=== PATIENT | male | born 1965 | race Hispanic/Latino ===

== ENCOUNTER 2016-11-18 15:03 | Emergency (ER) | payer MEDICARE ==
[2016-11-18 16:39] LABS: Bilirubin,Urine Negative (Negative); Blood,Urine Negative (Negative); Ketones,Urine Negative (Negative); Protein,Urine <15 mg/dL mg/dL (Negative)
[2016-11-18 16:40] LABS: Leukocyte Esterase,Urine Negative (Negative); Nitrite,Urine Negative (Negative); Urobilinogen,Urine < 2.0 mg/dL (<2.0)
[2016-11-18] MEDS ORDERED: NACL 0.9% 1000 ML 1,000 ML IV ONE ×2 (16:45→19:21)
[2016-11-18] MEDS ORDERED: MORPHINE IV ONE (16:45)
[2016-11-18] MEDS ORDERED: ZOFRAN IV ONE ×2 (16:45→23:17)
[2016-11-18] MEDS ORDERED: MORPHINE ONE (16:48)
[2016-11-18 16:49] LABS: Basophils % (Auto) 0.7 % (0.0-1.8); Eosinophils % (Auto) 1.7 % (0.0-4.3); Hematocrit 36.5 % (35.5-45.6); Hemoglobin 12.2 gm/dl (11.8-15.2); Mean Corpuscular HGB Conc 33 % (32-34); Mean Corpuscular Hemoglobin 29 pg (28-32); Mean Corpuscular Volume 87 fl (84-94); Platelet Count 179 K/mm3 (140-440); Red Blood Count 4.22 M/mm3 (3.65-5.03)
[2016-11-18 16:51] LABS: Red Cell Distribution Width 20.7 % (13.2-15.2)
[2016-11-18 16:59] LABS: INR 1.16 (0.87-1.13)
[2016-11-18] MEDS ORDERED: D5NS 1,000 ML IV SCH (17:00)
[2016-11-18 17:10] LABS: Alanine Aminotransferase 21 units/L (7-56); Alkaline Phosphatase 139 units/L (35-129); Anion Gap 19 mmol/L; Bilirubin,Direct 0.3 mg/dL (0-0.2); Bilirubin,Indirect 0.5 mg/dL; Bilirubin,Total 0.8 mg/dL (0.1-1.2); Blood Urea Nitrogen 9 mg/dL (9-20); Calcium 9.1 mg/dL (8.4-10.2); Carbon Dioxide 25 mmol/L (22-30); Chloride 100.3 mmol/L (98-107); Glucose 104 mg/dL (75-100); Potassium 3.9 mmol/L (3.6-5.0); Sodium 140 mmol/L (137-145); Total Protein 6.8 g/dL (6.3-8.2)
--- NOTE | 2016-11-18 17:14 | Emergency Department Report ---
ED N/V/D HPI - General Chief complaint: Nausea/Vomiting/Diarrhea Stated complaint: N/V DIARRHEA BLOOD IN STOOL/VOMITT Time Seen by Provider: 11/18/16 16:19 Source: patient, EMS, old records reviewed Mode of arrival: Stretcher Limitations: Other - History of Present Illness Initial comments: 51-year-old male with a past medical history alcohol abuse, seizures, asthma, GERD, hypertension, liver disease, soft tissue varices, and recent C. difficile diagnosis presents to the hospital from [facility] with reports of nausea, vomiting, and abdominal pain. Patient reports that he has a history of alcohol abuse until he was admitted to [facility]. Patient has similar symptoms and was admitted to [facility] for 1.5 months and just discharged on November 17. Patient received GI workup and evaluation including endoscopy. Diagnosis included esophageal varices and C. difficile. Patient also reports that he received multiple units of PRBCs for anemia. Patient reports that he felt better and was able to tolerate food prior to discharge. However, since he was discharged and transferred to [facility] on November 17 and his symptoms worsened. No antibiotics as listed on his med sheets however, patient states to his knowledge he received treatment by the hospital for c diiff but he is unaware what meds they are giving him at [facility]. Patient states he is vomiting gross blood as well as blood mixed with stomach contents. No reports of clots. His blood in his stool at times. Patient complains of generalized severe crampy abdominal pain that is constant but fluctuates in intensity. Worse with palpation. No alleviating factors. Patient states he is unsure as to why he is at [facility] was does not desire to go back. There is voluntary [id number] signed on the chart provided by [facility] Part of Recent admission obtained from [facility]. Patient was admitted 10/08/2016 and discharged on 11/16/2016. During his admission and he had unremarkable CT of the head, paracentesis with removal with 3 views of yellow fluid, neurologic consultation due to witnessed seizure. Endoscopy performed 10/08/2016 by Antonio Henderson for hematemesis Diagnosis: Likely variceal bleed. Grade 1 and grade 2 esophageal very see. No active bleeding or old blood. No banding performed. Normal stomach. Medium- sized hiatal hernia. Normal duodenum with no blood. No specimens collected. Patient was treated with nothing by mouth, octeotride drip, PPI Unfortunately, complete discharge summary was not faxed as requested. Multiple BMPs were performed however,CBC results were not faxed. Unable to determine patient's H&H during admission or determine if pt received multiple blood transfusions based on provided records. - Related Data Previous Rx's Medication Instructions Recorded Last Taken Type Bacillus Coagulans [Probiotic] 1 each PO QAM #30 capsule.dr 11/19/16 Unknown Rx Ferrous Sulfate [Feosol 325 MG tab] 325 mg PO QDAY #30 tablet 11/19/16 Unknown Rx Furosemide [Lasix] 60 mg PO QDAY 30 Days 11/19/16 Unknown Rx Lurasidone HCl [Latuda] 20 mg PO QHS #30 tablet 11/19/16 Unknown Rx Ondansetron [Zofran Odt] 4 mg PO Q8HR PRN #20 tab.rapdis 11/19/16 Unknown Rx Pantoprazole [Protonix] 40 mg PO QDAY #30 tablet 11/19/16 Unknown Rx Pyridoxine HCl [Vitamin B-6] 100 mg PO DAILY #30 tablet 11/19/16 Unknown Rx Spironolactone [Aldactone] 50 mg PO QDAY #30 tablet 11/19/16 Unknown Rx Thiamine [Vitamin B-1] 100 mg PO QDAY #30 tablet 11/19/16 Unknown Rx hydrOXYzine PAMOATE [Vistaril] 50 mg PO Q6HR PRN #30 capsule 11/19/16 Unknown Rx oxyCODONE /ACETAMINOPHEN [Percocet 1 tab PO Q6HR PRN #20 tablet 11/19/16 Unknown Rx 5/325] Allergies Allergy/AdvReac Type Severity Reaction Status Date / Time Penicillins Allergy Rash Verified 11/18/16 15:44 Sulfa (Sulfonamide Allergy Rash Verified 11/18/16 15:44 Antibiotics) meperidine HCl [From Demerol] AdvReac Unknown Verified 11/18/16 15:44 ED Review of Systems ROS: Stated complaint: N/V DIARRHEA BLOOD IN STOOL/VOMITT Other details as noted in HPI Comment: All other systems reviewed and negative Other: Constitutional: No fevers chills Eyes: No eye pain visual changes ENT: No ear pain or throat pain Neck: Denies pain Respiratory: Denies cough wheezing shortness of breath Cardiovascular: Denies chest pain, palpitations, syncope GI: as per hpi : Denies dysuria Musculoskeletal: Denies back pain, joint swelling Skin: Denies rash, lesions, erythema Neurologic: Denies headache, numbness, weakness Psychiatric: Denies suicidal ideation, hallucinations ED Past Medical Hx - Past Medical History Previous Medical History?: Yes Hx Hypertension: Yes Hx GERD: Yes Hx Liver Disease: Yes Hx Seizures: Yes Hx Asthma: Yes Additional medical history: esophageal varices. c-diff. Alcohol abuse, elevated LFTs - Surgical History Past Surgical History?: No - Social History Smoking Status: Current Every Day Smoker Substance Use Type: Alcohol - Medications Home Medications: Home Medications Medication Instructions Recorded Confirmed Last Taken Type Bacillus Coagulans [Probiotic] 1 each PO QAM #30 capsule. 11/19/16 Unknown Rx Ferrous Sulfate [Feosol 325 MG tab] 325 mg PO QDAY #30 tablet 11/19/16 Unknown Rx Furosemide [Lasix] 60 mg PO QDAY 30 Days 11/19/16 Unknown Rx Lurasidone HCl [Latuda] 20 mg PO QHS #30 tablet 11/19/16 Unknown Rx Ondansetron [Zofran Odt] 4 mg PO Q8HR PRN #20 tab.rapdis 11/19/16 Unknown Rx Pantoprazole [Protonix] 40 mg PO QDAY #30 tablet 11/19/16 Unknown Rx Pyridoxine HCl [Vitamin B-6] 100 mg PO DAILY #30 tablet 11/19/16 Unknown Rx Spironolactone [Aldactone] 50 mg PO QDAY #30 tablet 11/19/16 Unknown Rx Thiamine [Vitamin B-1] 100 mg PO QDAY #30 tablet 11/19/16 Unknown Rx hydrOXYzine PAMOATE [Vistaril] 50 mg PO Q6HR PRN #30 capsule 11/19/16 Unknown Rx oxyCODONE /ACETAMINOPHEN [Percocet 1 tab PO Q6HR PRN #20 tablet 11/19/16 Unknown Rx 5/325] ED Physical Exam - General Limitations: Other - Other Other exam information: General: No limitations, patient is alert in no acute distress Head exam: Atraumatic, normocephalic Eyes exam: Normal appearance, nonicteric sclera ENT: Moist mucous membrane, normal oropharynx Neck exam: Normal inspection, full range of motion Respiratory exam: Clear to auscultation bilateral, no wheezes, rales, crackles Cardiovascular: Normal rate and rhythm, normal heart sounds Abdomen: Soft, nondistended, generalized abdominal tenderness greatest in the epigastric area, normal bowel sounds Extremity: Full range of motion normal inspection no deformity Back: Normal Inspection, full range of motion, no tenderness Neurologic: Alert, oriented x3, cranial nerves intact, no motor or sensory deficit Psychiatric: normal affect, normal mood Skin: Warm, dry, intactm ED Course Vital Signs 11/18/16 11/18/16 11/18/16 15:46 15:48 15:50 Pulse Rate 102 H 78 78 Respiratory 12 9 L Rate Blood Pressure 118/65 118/65 O2 Sat by Pulse 98 100 Oximetry 11/18/16 11/18/16 11/18/16 15:52 15:54 15:56 Pulse Rate 75 81 78 Respiratory 10 L 11 L 11 L Rate Blood Pressure 118/65 118/65 118/65 O2 Sat by Pulse 99 100 100 Oximetry 11/18/16 11/18/16 11/18/16 15:58 16:00 17:18 Pulse Rate 80 79 86 Respiratory 11 L 10 L 13 Rate Blood Pressure 118/65 106/66 116/73 O2 Sat by Pulse 99 99 99 Oximetry 11/18/16 11/18/16 11/18/16 17:20 17:22 17:24 Pulse Rate 88 86 95 H Respiratory 11 L 13 11 L Rate Blood Pressure 116/73 116/73 116/73 O2 Sat by Pulse 100 99 100 Oximetry 11/18/16 11/18/16 11/18/16 17:26 17:28 17:30 Pulse Rate 89 91 H 84 Respiratory 10 L 12 11 L Rate Blood Pressure 116/73 116/73 116/73 O2 Sat by Pulse 99 100 98 Oximetry 11/18/16 11/18/16 11/18/16 17:32 17:34 17:36 Pulse Rate 79 72 75 Respiratory 12 10 L 12 Rate Blood Pressure 116/73 116/73 116/73 O2 Sat by Pulse 99 100 99 Oximetry 11/18/16 11/18/16 11/18/16 17:38 17:40 17:42 Pulse Rate 78 88 79 Respiratory 12 14 12 Rate Blood Pressure 116/73 116/73 116/73 O2 Sat by Pulse 100 100 100 Oximetry 11/18/16 11/18/16 11/18/16 17:44 17:46 17:48 Pulse Rate 68 75 79 Respiratory 14 10 L 9 L Rate Blood Pressure 116/73 116/73 116/73 O2 Sat by Pulse 99 99 99 Oximetry 11/18/16 11/18/16 11/18/16 17:50 17:52 17:54 Pulse Rate 79 81 77 Respiratory 11 L 10 L 10 L Rate Blood Pressure 116/73 116/73 116/73 O2 Sat by Pulse 99 100 100 Oximetry 11/18/16 11/18/16 11/18/16 17:56 17:58 18:00 Pulse Rate 82 79 77 Respiratory 10 L 10 L 11 L Rate Blood Pressure 116/73 116/73 116/73 O2 Sat by Pulse 99 100 98 Oximetry 11/18/16 11/18/16 11/18/16 18:02 18:04 18:06 Pulse Rate 78 80 85 Respiratory 11 L 9 L 11 L Rate Blood Pressure 116/73 116/73 116/73 O2 Sat by Pulse 98 97 98 Oximetry 11/18/16 11/18/16 11/18/16 18:08 18:10 18:12 Pulse Rate 84 83 82 Respiratory 12 11 L 10 L Rate Blood Pressure 116/73 116/73 116/73 O2 Sat by Pulse 98 99 99 Oximetry 11/18/16 11/18/16 11/18/16 18:14 18:16 18:18 Pulse Rate 79 82 95 H Respiratory 10 L 13 12 Rate Blood Pressure 116/73 116/73 116/73 O2 Sat by Pulse 99 99 100 Oximetry 11/18/16 11/18/16 11/18/16 18:20 18:22 18:24 Pulse Rate 82 77 87 Respiratory 18 13 24 Rate Blood Pressure 116/73 116/73 116/73 O2 Sat by Pulse 98 100 96 Oximetry 11/18/16 11/18/16 11/18/16 18:26 18:28 18:30 Pulse Rate 85 82 79 Respiratory 21 15 25 H Rate Blood Pressure 116/73 116/73 116/73 O2 Sat by Pulse 98 99 98 Oximetry 11/18/16 11/18/16 11/18/16 18:32 18:34 18:36 Pulse Rate 101 H 99 H 76 Respiratory 27 H 21 26 H Rate Blood Pressure 116/73 116/73 116/73 O2 Sat by Pulse 98 98 99 Oximetry 04/07/17 04/07/17 04/07/17 18:38 18:40 18:42 Pulse Rate 80 76 91 H Respiratory 17 15 24 Rate Blood Pressure 116/73 116/73 116/73 O2 Sat by Pulse 98 98 98 Oximetry 11/18/16 11/18/16 11/18/16 18:44 18:46 18:48 Pulse Rate 88 74 75 Respiratory 30 H 24 14 Rate Blood Pressure 116/73 116/73 116/73 O2 Sat by Pulse 98 99 99 Oximetry 11/18/16 11/18/16 11/18/16 18:50 18:52 18:54 Pulse Rate 77 88 88 Respiratory 14 14 13 Rate Blood Pressure 116/73 116/73 109/72 O2 Sat by Pulse 98 99 99 Oximetry 11/18/16 11/18/16 11/18/16 18:56 18:58 19:00 Pulse Rate 81 78 74 Respiratory 14 12 12 Rate Blood Pressure 109/72 109/72 103/65 O2 Sat by Pulse 100 98 98 Oximetry 11/18/16 11/18/16 11/18/16 19:02 19:04 19:06 Pulse Rate 77 85 83 Respiratory 14 14 11 L Rate Blood Pressure 103/65 103/65 103/65 O2 Sat by Pulse 98 97 98 Oximetry 11/18/16 11/18/16 11/18/16 19:08 19:10 19:12 Pulse Rate 75 90 83 Respiratory 11 L 25 H 26 H Rate Blood Pressure 103/65 103/65 103/65 O2 Sat by Pulse 99 99 98 Oximetry 11/18/16 11/18/16 11/18/16 19:14 19:16 19:18 Pulse Rate 80 77 83 Respiratory 19 17 21 Rate Blood Pressure 103/65 103/65 103/65 O2 Sat by Pulse 98 98 98 Oximetry 11/18/16 11/18/16 11/18/16 19:20 19:22 19:24 Pulse Rate 85 85 79 Respiratory 19 22 18 Rate Blood Pressure 103/65 103/65 103/65 O2 Sat by Pulse 98 97 98 Oximetry 11/18/16 11/18/16 11/18/16 19:26 19:28 19:30 Pulse Rate 82 85 81 Respiratory 12 18 23 Rate Blood Pressure 103/65 103/65 103/65 O2 Sat by Pulse 99 99 99 Oximetry 11/18/16 11/18/16 11/18/16 19:32 19:34 19:36 Pulse Rate 80 88 90 Respiratory 13 11 L 26 H Rate Blood Pressure 103/65 103/65 103/65 O2 Sat by Pulse 98 98 98 Oximetry 11/18/16 11/18/16 11/18/16 19:38 19:40 19:42 Pulse Rate 88 83 89 Respiratory 26 H 21 21 Rate Blood Pressure 103/65 103/65 103/65 O2 Sat by Pulse 98 98 97 Oximetry 11/18/16 11/18/16 11/18/16 19:44 19:46 19:48 Pulse Rate 83 84 79 Respiratory 11 L 13 11 L Rate Blood Pressure 103/65 128/86 128/86 O2 Sat by Pulse 99 100 99 Oximetry 11/18/16 11/18/16 11/18/16 19:50 19:52 19:54 Pulse Rate 76 78 79 Respiratory 13 12 12 Rate Blood Pressure 128/86 128/86 128/86 O2 Sat by Pulse 99 98 98 Oximetry 11/18/16 11/18/16 11/18/16 19:56 19:58 20:00 Pulse Rate 82 79 75 Respiratory 11 L 13 12 Rate Blood Pressure 128/86 128/86 106/68 O2 Sat by Pulse 98 98 98 Oximetry 11/18/16 11/18/16 11/18/16 20:02 20:04 20:06 Pulse Rate 74 76 76 Respiratory 12 11 L 13 Rate Blood Pressure 106/68 106/68 106/68 O2 Sat by Pulse 97 96 97 Oximetry 11/18/16 11/18/16 11/18/16 20:08 20:10 20:12 Pulse Rate 76 74 80 Respiratory 13 16 12 Rate Blood Pressure 106/68 106/68 106/68 O2 Sat by Pulse 96 96 98 Oximetry 11/18/16 11/18/16 11/18/16 20:14 20:16 20:18 Pulse Rate 68 71 70 Respiratory 13 13 11 L Rate Blood Pressure 106/68 102/64 102/64 O2 Sat by Pulse 98 97 97 Oximetry 11/18/16 11/18/16 11/18/16 20:20 20:22 20:24 Pulse Rate 73 67 81 Respiratory 13 11 L 11 L Rate Blood Pressure 102/64 102/64 102/64 O2 Sat by Pulse 97 97 98 Oximetry 11/18/16 11/18/16 11/18/16 20:26 20:28 20:30 Pulse Rate 77 68 74 Respiratory 12 14 18 Rate Blood Pressure 102/64 102/64 111/72 O2 Sat by Pulse 98 99 100 Oximetry 11/18/16 11/18/16 11/18/16 20:32 20:34 20:36 Pulse Rate 77 77 71 Respiratory 13 11 L 11 L Rate Blood Pressure 111/72 111/72 111/72 O2 Sat by Pulse 100 100 100 Oximetry 11/18/16 11/18/16 11/18/16 20:38 21:24 21:26 Pulse Rate 78 87 81 Respiratory 14 11 L 17 Rate Blood Pressure 111/72 105/57 105/57 O2 Sat by Pulse 100 99 98 Oximetry 11/18/16 11/18/16 11/18/16 21:28 21:30 21:32 Pulse Rate 78 80 83 Respiratory 12 24 12 Rate Blood Pressure 105/57 86/54 97/53 O2 Sat by Pulse 97 95 96 Oximetry 11/18/16 11/18/16 11/18/16 21:34 21:36 21:38 Pulse Rate 91 H 76 77 Respiratory 16 10 L 10 L Rate Blood Pressure 97/53 97/53 97/53 O2 Sat by Pulse 96 96 94 Oximetry 11/18/16 11/18/16 11/18/16 21:40 21:42 21:44 Pulse Rate 77 76 76 Respiratory 10 L 10 L 11 L Rate Blood Pressure 97/53 97/53 105/57 O2 Sat by Pulse 94 93 93 Oximetry 11/18/16 11/18/16 11/18/16 21:46 21:48 21:50 Pulse Rate 80 77 72 Respiratory 12 10 L 12 Rate Blood Pressure 92/55 92/55 92/55 O2 Sat by Pulse 92 94 93 Oximetry 11/18/16 11/18/16 11/18/16 21:52 21:54 21:56 Pulse Rate 79 78 70 Respiratory 12 11 L 9 L Rate Blood Pressure 92/55 92/55 92/55 O2 Sat by Pulse 93 93 94 Oximetry 11/18/16 11/18/16 11/18/16 21:58 22:00 22:02 Pulse Rate 76 70 83 Respiratory 11 L 11 L 12 Rate Blood Pressure 92/55 101/57 101/57 O2 Sat by Pulse 94 96 93 Oximetry 11/18/16 11/18/16 11/18/16 22:04 22:06 22:08 Pulse Rate 77 71 77 Respiratory 13 10 L 13 Rate Blood Pressure 101/57 101/57 101/57 O2 Sat by Pulse 94 94 93 Oximetry 11/18/16 11/18/16 11/18/16 22:10 22:12 22:14 Pulse Rate 74 75 77 Respiratory 11 L 13 11 L Rate Blood Pressure 101/57 101/57 101/57 O2 Sat by Pulse 95 93 95 Oximetry 11/18/16 11/18/16 11/18/16 22:16 22:18 22:20 Pulse Rate 69 77 75 Respiratory 11 L 10 L 10 L Rate Blood Pressure 101/55 101/55 101/55 O2 Sat by Pulse 97 96 97 Oximetry 11/18/16 11/18/16 11/18/16 22:22 22:24 22:26 Pulse Rate 82 83 74 Respiratory 9 L 12 13 Rate Blood Pressure 101/55 101/55 101/55 O2 Sat by Pulse 98 99 97 Oximetry 11/18/16 11/18/16 11/18/16 22:28 22:30 22:32 Pulse Rate 75 75 77 Respiratory 12 12 9 L Rate Blood Pressure 101/55 103/59 103/59 O2 Sat by Pulse 97 98 98 Oximetry 11/18/16 11/18/16 11/18/16 22:34 22:36 22:38 Pulse Rate 85 75 69 Respiratory 12 10 L 16 Rate Blood Pressure 103/59 103/59 103/59 O2 Sat by Pulse 98 98 98 Oximetry 11/18/16 11/18/16 11/18/16 22:40 22:42 22:44 Pulse Rate 73 75 74 Respiratory 13 11 L 13 Rate Blood Pressure 103/59 103/59 103/59 O2 Sat by Pulse 98 97 96 Oximetry 11/18/16 11/18/16 11/18/16 22:46 22:48 22:50 Pulse Rate 75 82 83 Respiratory 13 13 13 Rate Blood Pressure 108/58 108/58 108/58 O2 Sat by Pulse 98 100 98 Oximetry 11/18/16 11/18/16 11/18/16 22:52 22:54 22:56 Pulse Rate 89 96 H 99 H Respiratory 12 16 14 Rate Blood Pressure 108/58 108/58 108/58 O2 Sat by Pulse 98 85 100 Oximetry 11/18/16 11/18/16 11/18/16 22:58 23:00 23:02 Pulse Rate 103 H 91 H 84 Respiratory 19 13 15 Rate Blood Pressure 108/58 113/65 113/65 O2 Sat by Pulse 99 100 100 Oximetry 11/18/16 11/18/16 11/18/16 23:04 23:06 23:08 Pulse Rate 72 79 82 Respiratory 13 11 L 11 L Rate Blood Pressure 113/65 113/65 113/65 O2 Sat by Pulse 100 100 100 Oximetry 11/18/16 11/18/16 11/18/16 23:10 23:12 23:14 Pulse Rate 72 86 72 Respiratory 11 L 11 L 10 L Rate Blood Pressure 113/65 113/65 113/65 O2 Sat by Pulse 100 100 100 Oximetry 11/18/16 11/18/16 11/18/16 23:16 23:18 23:20 Pulse Rate 82 88 91 H Respiratory 13 12 12 Rate Blood Pressure 108/58 108/58 108/58 O2 Sat by Pulse 99 98 99 Oximetry 11/18/16 11/18/16 11/18/16 23:22 23:24 23:26 Pulse Rate 82 88 78 Respiratory 9 L 11 L 11 L Rate Blood Pressure 108/58 108/58 108/58 O2 Sat by Pulse 98 97 98 Oximetry 11/18/16 23:28 Pulse Rate 80 Respiratory 9 L Rate Blood Pressure 108/58 O2 Sat by Pulse 97 Oximetry - Reevaluation(s) Reevaluation #1: 11/18/16 17:16 D5NS, morphine, Zofran ordered. Reevaluation #2: 11/19/16 00:05 After initial dose of meds patient required Reglan and Benadryl with improvement of nausea and vomiting. After CT results. Patient was given food to eat and drink per his request. Patient tolerated eating and drinking but then developed nausea and epigastric pain afterwards. Additional dose of pain medication and Zofran provided. 11/19/16 00:06 - Consultations Consultation #1: 11/19/16 This was discussed with Dr. Palacio GI specialist on ED stay. Patient does not require any acute GI intervention at this time given recent workup. ED Medical Decision Making - Lab Data Result diagrams: 11/18/16 16:26 11/18/16 16:26 Lab Results 11/18/16 11/18/16 11/18/16 Range/Units 15:50 16:26 16:26 WBC 10.0 (4.5-11.0) K/mm3 RBC 4.22 (3.65-5.03) M/mm3 Hgb 12.2 (11.8-15.2) gm/dl Hct 36.5 (35.5-45.6) % MCV 87 (84-94) fl MCH 29 (28-32) pg MCHC 33 (32-34) % RDW 20.7 H (13.2-15.2) % Plt Count 179 (140-440) K/mm3 Lymph % (Auto) 19.0 (13.4-35.0) % Tillman % (Auto) 7.5 H (0.0-7.3) % Eos % (Auto) 1.7 (0.0-4.3) % Baso % (Auto) 0.7 (0.0-1.8) % Lymph # 1.9 (1.2-5.4) K/mm3 Tillman # 0.8 (0.0-0.8) K/mm3 Eos # 0.2 (0.0-0.4) K/mm3 Baso # 0.1 (0.0-0.1) K/mm3 Seg Neutrophils % 71.1 H (40.0-70.0) % Seg Neutrophils # 7.1 (1.8-7.7) K/mm3 PT 14.7 (12.2-14.9) Sec. INR 1.16 H (0.87-1.13) APTT 34.0 (24.2-36.6) Sec. Sodium (137-145) mmol/L Potassium (3.6-5.0) mmol/L Chloride (98-107) mmol/L Carbon Dioxide (22-30) mmol/L Anion Gap mmol/L BUN (9-20) mg/dL Creatinine (0.8-1.5) mg/dL Estimated GFR ml/min BUN/Creatinine Ratio % Glucose (75-100) mg/dL Calcium (8.4-10.2) mg/dL Magnesium (1.7-2.3) mg/dL Total Bilirubin (0.1-1.2) mg/dL Direct Bilirubin (0-0.2) mg/dL Indirect Bilirubin mg/dL AST (5-40) units/L ALT (7-56) units/L Alkaline Phosphatase (35-129) units/L Total Protein (6.3-8.2) g/dL Albumin (3.9-5) g/dL Albumin/Globulin Ratio % Lipase (13-60) units/L Urine Color Yellow (Yellow) Urine Turbidity Clear (Clear) Urine pH 7.0 (5.0-7.0) Ur Specific [place] 1.010 (1.003-1.030) Urine Protein <15 mg/dl (Negative) mg/dL Urine Glucose (UA) Negative (Negative) mg/dL Urine Ketones Negative (Negative) mg/dL Urine Blood Negative (Negative) Urine Nitrite Negative (Negative) Urine Bilirubin Negative (Negative) Urine Urobilinogen < 2.0 (<2.0) mg/dL Ur Leukocyte Esterase Negative (Negative) Urine WBC (Auto) 0.0 (0.0-6.0) /HPF Urine RBC (Auto) 0.0 (0.0-6.0) /HPF U Epithel Cells (Auto) 1.0 (0-13.0) /HPF Blood Type Antibody Screen 11/18/16 11/18/16 11/18/16 Range/Units 16:26 16:26 16:26 WBC (4.5-11.0) K/mm3 RBC (3.65-5.03) M/mm3 Hgb (11.8-15.2) gm/dl Hct (35.5-45.6) % MCV (84-94) fl MCH (28-32) pg MCHC (32-34) % RDW (13.2-15.2) % Plt Count (140-440) K/mm3 Lymph % (Auto) (13.4-35.0) % Tillman % (Auto) (0.0-7.3) % Eos % (Auto) (0.0-4.3) % Baso % (Auto) (0.0-1.8) % Lymph # (1.2-5.4) K/mm3 Tillman # (0.0-0.8) K/mm3 Eos # (0.0-0.4) K/mm3 Baso # (0.0-0.1) K/mm3 Seg Neutrophils % (40.0-70.0) % Seg Neutrophils # (1.8-7.7) K/mm3 PT (12.2-14.9) Sec. INR (0.87-1.13) APTT (24.2-36.6) Sec. Sodium 140 (137-145) mmol/L Potassium 3.9 (3.6-5.0) mmol/L Chloride 100.3 (98-107) mmol/L Carbon Dioxide 25 (22-30) mmol/L Anion Gap 19 mmol/L BUN 9 (9-20) mg/dL Creatinine 0.5 L (0.8-1.5) mg/dL Estimated GFR > 60 ml/min BUN/Creatinine Ratio 18.00 % Glucose 104 H (75-100) mg/dL Calcium 9.1 (8.4-10.2) mg/dL Magnesium (1.7-2.3) mg/dL Total Bilirubin 0.8 (0.1-1.2) mg/dL Direct Bilirubin 0.3 H (0-0.2) mg/dL Indirect Bilirubin 0.5 mg/dL AST 36 (5-40) units/L ALT 21 (7-56) units/L Alkaline Phosphatase 139 H (35-129) units/L Total Protein 6.8 (6.3-8.2) g/dL Albumin 3.5 L (3.9-5) g/dL Albumin/Globulin Ratio 1.1 % Lipase 20 (13-60) units/L Urine Color (Yellow) Urine Turbidity (Clear) Urine pH (5.0-7.0) Ur Specific [place] (1.003-1.030) Urine Protein (Negative) mg/dL Urine Glucose (UA) (Negative) mg/dL Urine Ketones (Negative) mg/dL Urine Blood (Negative) Urine Nitrite (Negative) Urine Bilirubin (Negative) Urine Urobilinogen (<2.0) mg/dL Ur Leukocyte Esterase (Negative) Urine WBC (Auto) (0.0-6.0) /HPF Urine RBC (Auto) (0.0-6.0) /HPF U Epithel Cells (Auto) (0-13.0) /HPF Blood Type A POSITIVE Antibody Screen Negative 11/18/16 Range/Units 16:26 WBC (4.5-11.0) K/mm3 RBC (3.65-5.03) M/mm3 Hgb (11.8-15.2) gm/dl Hct (35.5-45.6) % MCV (84-94) fl MCH (28-32) pg MCHC (32-34) % RDW (13.2-15.2) % Plt Count (140-440) K/mm3 Lymph % (Auto) (13.4-35.0) % Tillman % (Auto) (0.0-7.3) % Eos % (Auto) (0.0-4.3) % Baso % (Auto) (0.0-1.8) % Lymph # (1.2-5.4) K/mm3 Tillman # (0.0-0.8) K/mm3 Eos # (0.0-0.4) K/mm3 Baso # (0.0-0.1) K/mm3 Seg Neutrophils % (40.0-70.0) % Seg Neutrophils # (1.8-7.7) K/mm3 PT (12.2-14.9) Sec. INR (0.87-1.13) APTT (24.2-36.6) Sec. Sodium (137-145) mmol/L Potassium (3.6-5.0) mmol/L Chloride (98-107) mmol/L Carbon Dioxide (22-30) mmol/L Anion Gap mmol/L BUN (9-20) mg/dL Creatinine (0.8-1.5) mg/dL Estimated GFR ml/min BUN/Creatinine Ratio % Glucose (75-100) mg/dL Calcium (8.4-10.2) mg/dL Magnesium 1.5 L (1.7-2.3) mg/dL Total Bilirubin (0.1-1.2) mg/dL Direct Bilirubin (0-0.2) mg/dL Indirect Bilirubin mg/dL AST (5-40) units/L ALT (7-56) units/L Alkaline Phosphatase (35-129) units/L Total Protein (6.3-8.2) g/dL Albumin (3.9-5) g/dL Albumin/Globulin Ratio % Lipase (13-60) units/L Urine Color (Yellow) Urine Turbidity (Clear) Urine pH (5.0-7.0) Ur Specific [place] (1.003-1.030) Urine Protein (Negative) mg/dL Urine Glucose (UA) (Negative) mg/dL Urine Ketones (Negative) mg/dL Urine Blood (Negative) Urine Nitrite (Negative) Urine Bilirubin (Negative) Urine Urobilinogen (<2.0) mg/dL Ur Leukocyte Esterase (Negative) Urine WBC (Auto) (0.0-6.0) /HPF Urine RBC (Auto) (0.0-6.0) /HPF U Epithel Cells (Auto) (0-13.0) /HPF Blood Type Antibody Screen - Radiology Data Radiology results: report reviewed ct a/p IV contrast: Small amount of ascites. Abnormal wall thickening seen in the rectosigmoid colon and the lower half of the right pedicle consistent with nonspecific colitis. They represent inflammatory bowel disease. Infectious etiology is not excluded. Multiple renal cortical cyst visualized as well as small nonobstructive renal calculi - Medical Decision Making patient had an extended ed stay. labs unremarkable. no signs of dehydration. no episodes of vomiting in the ed. no episodes of diarrhea. also, patient doesn't have any signs of active bleeding, hematemesis, or hematochezia. h&h is normal. patient seems to have pain in his epigastrium with nausea. he'll be treated symptomatically encouraged to continue ppi and discharge home or back to [facility]. I explained to patient the reports that I received from [facility]. Patient states he received 2 different endoscopies and 3 different paracentesis. I'm unsure if I received a complete chart that I requested from [facility] at this time. However, patient does not have any signs of active bleeding, vomiting, and his pain is controlled. He'll be sent home on medications that were recently prescribed and recommended to his recent evaluations. Patient was to go home and got back to [facility]. 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 - Differential Diagnosis pancreatitis, esophagitis, GI bleed, C. difficile, esophageal varices, coag Critical Care Time: No Critical care attestation.: If time is entered above; I have spent that time in minutes in the direct care of this critically ill patient, excluding procedure time. ED Disposition Clinical Impression: Epigastric pain, Vomiting, Alcohol abuse Disposition: DISCHARGED TO HOME OR SELFCARE Is pt being admited?: No Does the pt Need Aspirin: No Condition: Stable Instructions: Abuse of Alcohol (ED), Acute Nausea and Vomiting (ED), Abdominal Pain (ED) Additional Instructions: I have continue the medications that you were taking at [facility] and that have been recommended upon your recent discharge. It is very important that you follow with a primary care doctor for further management of your underlying chronic conditions. Follow with the primary care doctor or clinic provided and gi doctor. Prescriptions: Bacillus Coagulans [Probiotic] 1 each PO QAM #30 capsule. Ferrous Sulfate [Feosol 325 MG tab] 325 mg PO QDAY #30 tablet Furosemide [Lasix] 60 mg PO QDAY 30 Days hydrOXYzine PAMOATE [Vistaril] 50 mg PO Q6HR PRN #30 capsule PRN Reason: Anxiety Lurasidone HCl [Latuda] 20 mg PO QHS #30 tablet Ondansetron [Zofran Odt] 4 mg PO Q8HR PRN #20 tab.rapdis PRN Reason: Nausea And Vomiting oxyCODONE /ACETAMINOPHEN [Percocet 5/325] 1 tab PO Q6HR PRN #20 tablet PRN Reason: Pain Pantoprazole [Protonix] 40 mg PO QDAY #30 tablet Pyridoxine HCl [Vitamin B-6] 100 mg PO DAILY #30 tablet Spironolactone [Aldactone] 50 mg PO QDAY #30 tablet Thiamine [Vitamin B-1] 100 mg PO QDAY #30 tablet Referrals: JOHNY PALACIO MD [Staff Physician] - 3-5 Days (GI doctor) NILSON XIE MD [Staff Physician] - 3-5 Days (Primary care doctor) [facility] [Provider Group] - 3-5 Days (Primary care clinic) Time of Disposition: 00:19
[2016-11-18 17:21] LABS: Albumin 3.5 g/dL (3.9-5); Albumin/Globulin Ratio 1.1 %
[2016-11-18] MEDS ORDERED: MAGNESIUM SULFATE 2GM/50ML 2 GM/50 ML BAG IV ONE (18:21)
[2016-11-18] MEDS ORDERED: BENADRYL IV ONE (19:18)
[2016-11-18] MEDS ORDERED: REGLAN IV ONE (19:18)
[2016-11-18] MEDS ORDERED: DILAUDID IV ONE ×2 (19:18→23:17)
--- NOTE | 2016-11-18 19:57 | Admit Criteria Form ---
Admission Criteria Documentation: GASTROINTESTINAL BLEEDING, UPPER Clinical Indications for Admission to Inpatient Care ( Place 'X' for any and all applicable criteria): Admission is indicated for ANY ONE of the following(1)(2)(3)(4)(5)(6): [ X]I. Active bleeding (eg, fresh voluminous blood in emesis or nasogastric aspirate) [ ]II. Associated conditions requiring hospitalization (eg, perforation, obstruction from ulcer) [ ]III. Inpatient admission required rather than observation care (Also use Gastrointestinal Bleeding, Upper: Observation Care as appropriate) because of ANY ONE of the following: [ ]a) Hemodynamic instability that is severe or persistent [ ]b) Anemia requiring inpatient admission as indicated by ALL of the following: [ ]1) Presence of significant clinical finding indicated by ANY ONE of the following: [ ]A. Tachycardia for age [ ]B. Orthostatic vital sign changes [ ]C. Cognitive impairment [ ]D. Heart failure [ ]E. Chest pain [ ]F. Exertional dyspnea [ ]G. Other findings suggesting inadequate perfusion (eg, peripheral or myocardial ischemia, end organ dysfunction) [ ]2) Initial (eg, emergency department, observation care) treatment with transfusion or volume replacement is judged inappropriate (due to severity of the finding) or has been ineffective [ ]c) Severe pain requiring acute inpatient management [ ]d) High-risk low platelet count [ ]e) IV fluid to replace significant ongoing losses (greater than 3 L/m2 per day) [ ]f) Immediate inpatient surgery [ ]g) Other condition, treatment or monitoring requiring inpatient admission [ ]IV. Severe liver disease (eg, cirrhosis) [ ]V. Significant active comorbid disease [ ]. Anticoagulation therapy [X ]VII. High-risk endoscopic features (arterial bleeding, adherent clot, nonbleeding visible vessel, varices, flat red spots, ulcer size greater than 2 cm, or portal hypertensive gastropathy) [ ]VIII. Previous aortic graft placement or known aortic aneurysm [ ]IX. Coagulopathy [ ]X. Syncope Extended stay beyond goal length of stay may be needed for(1)(2): [ ]a) Emergency surgery [ ]b) Varices [ ]c) Coagulation abnormalities [ ]d) Recurrent, obscure, or persistent bleeding or continued Hemodynamic instability [ ]e) Associated conditions requiring surgery (eg, perforated gastric ulcer, gastric outlet obstruction) [ ]f) Active comorbidities (eg, renal insufficiency, heart failure, pre- existing liver disease) The original [facility] Boost[employer] content created by [facility] [employer] has been revised. The portions of the content which have been revised are identified through the use of italic text or in bold, and [facility] has neither reviewed nor approved the modified material. All other unmodified content is copyright [facility] [employer]. Please see references footnoted in the original [facility] [employer] edition 2016
[2016-11-18] MEDS ORDERED: NACL ONE (20:15)
--- NOTE | 2016-11-18 21:27 | Cat Scan Report ---
FINAL REPORT PROCEDURE: CT ABDOMEN PELVIS W CON TECHNIQUE: Computerized axial tomography of the abdomen and pelvis was performed after the IV injection of iodinated nonionic contrast. HISTORY: epigstric pain, vomiting, etoh abuse COMPARISON: No prior studies are available for comparison. FINDINGS: Lower Lung gonzalez: No sinificant abnormality seen. Upper Abdomen: The liver, the adrenal glands, the pancreas and the spleen are unremarkable. The adrenal glands are unremarkable. The conde of the gallbladder mildly prominent which appears to be secondary to small amount of fluid in the gallbladder fossa. There is also a small amount of fluid around the edges of the liver. Kidneys, Ureters and Urinary bladder: There are low-density nodules scattered in the renal cortex of both kidneys. These all have a similar appearance and measure up to 15 millimeters in size suggesting multiple renal cortical cyst. Small nonobstructing calculi are seen in the lower 3rd of the right kidney and in the middle and lower 3rd of the left kidney measuring up to 3 millimeters in size. There is no hydronephrosis. The ureters are not distended. No ureteral calculi are seen. The urinary bladder is unremarkable. Retroperitoneum: Atherosclerotic changes are seen in the abdominal aorta. No aneurysm is visualized. Nonspecific subcentimeter lymph nodes are seen in the retroperitoneum. No pathologically enlarged lymph nodes are identified. Bowel: The conde of the rectum and sigmoid colon are diffusely thickened. There is also thickening of the lower half of the right side of the colon with decreased density in the submucosal layer. The appearance suggest nonspecific colitis. Given the multifocal nature of this could represent inflammatory bowel disease. Other nonspecific colitis including infectious colitis cannot be excluded. No evidence of bowel obstruction. Normal-appearing appendix is seen in the right lower quadrant. Reproductive organs: Prostate gland does not appear to be enlarged. Other: No acute bony abnormalities are seen. IMPRESSION: Small amount of ascites present as described. Abnormal wall thickening seen in the rectum and sigmoid colon and also in the lower half of the right side of the colon consistent with nonspecific colitis. Given multi focal abnormality this may represent inflammatory bowel disease. Infectious etiology is not excluded. Multiple renal cortical cysts visualized as well small nonobstructing renal calculi.
[2016-11-18 22:57] VITALS: BP 108/58
== END 2016-11-19 06:49 | disposition home or self-care (01) ==
LOC: ED 15:03
DX: R10.13 Epigastric pain (principal); R11.2 Nausea with vomiting, unspecified; F10.10 Alcohol abuse, uncomplicated
CPT/HCPCS: 36415; 74177; 80048; 80074; 81001; 82270; 83690; 83735; 85007; 85025; 85610; 85730; 86850; 86900; 86901; 87045; 87493; 96361; 96365; 96375; 96376; 99284; J1170; J1200; J2270; J2405; J2765; J3475; J7030; J7042; Q9967

== ENCOUNTER 2022-02-21 11:18 | Emergency (ER) | payer MEDICARE ==
--- NOTE | 2022-02-21 12:35 | Emergency Department Report ---
Stated Complaint: PASSING OUT, SHAKING Time Seen by Provider: 02/21/22 12:33 - HPI History of Present Illness: left chest pain, teeth pain, left arm pain since Monday. states that he has had some sob, nausea, and syncope several times - ROS Review of Systems: c/o cp, sob, nausea, and syncope. - Exam Physical Exam: alert and oriented. MSE screening note: Focused history and physical exam performed. Due to findings the following was ordered:cbc, cmp, troponin, cxr, ekg, ct head Patient will be evaluated by provider when he goes to room. ED Disposition for MSE Condition: Stable
--- NOTE | 2022-02-21 13:08 | XRay Report ---
CHEST 2 VIEWS INDICATION / CLINICAL INFORMATION: chest pain. COMPARISON: None available. FINDINGS: SUPPORT DEVICES: None. HEART / MEDIASTINUM: No significant abnormality. LUNGS / PLEURA: No significant pulmonary or pleural abnormality. No pneumothorax. ADDITIONAL FINDINGS: No significant additional findings. IMPRESSION: 1. No acute findings. Signer Name: Asad Hannon MD Signed: 02/21/2022 1:03 PM Workstation Name: [id number]
[2022-02-21 13:29] LABS: Hematocrit 38.5 % (35.5-45.6); Hemoglobin 12.8 gm/dl (11.8-15.2); Mean Corpuscular HGB Conc 33 % (32-34); Mean Corpuscular Volume 107 fl (84-94); Platelet Count 309 K/mm3 (140-440); Red Cell Distribution Width 15.6 % (13.2-15.2)
[2022-02-21 13:38] LABS: INR 0.91 (0.87-1.13)
[2022-02-21 13:39] LABS: Partial Thromboplastin Time 28.7 Sec. (24.2-36.6)
[2022-02-21 13:47] LABS: Alanine Aminotransferase 68 units/L (7-56); Albumin 3.9 g/dL (3.9-5); Blood Urea Nitrogen 10 mg/dL (9-20); Calcium 9.1 mg/dL (8.4-10.2); Hemolysis Index 14
[2022-02-21 14:09] LABS: BUN/Creatinine Ratio 17
--- NOTE | 2022-02-21 14:27 | Cat Scan Report ---
CT HEAD WITHOUT CONTRAST INDICATION / CLINICAL INFORMATION: syncope, dizziness. TECHNIQUE: All CT scans at this location are performed using CT dose reduction for ALARA by means of automated exposure control. COMPARISON: None available. FINDINGS: BRAIN PARENCHYMA/INTRACRANIAL STRUCTURES: Mixed attenuation subdural collection along the left cerebr al convexity measures 1.3 cm in thickness (coronal image 33). There is mild mass effect with effaceme nt of the left lateral ventricle. Left to right midline shift measures 5 mm. No acute intraparenchyma l hemorrhage. No evidence of recent infarct. ORBITS: No acute findings SKELETAL SYSTEM/SOFT TISSUES: No acute findings PARANASAL SINUSES/MASTOID AIR CELLS: No significant abnormality. ADDITIONAL FINDINGS: None. IMPRESSION: 1. Mixed attenuating acute on chronic left subdural hematoma with 5 mm of [id number] midline shift . CRITICAL RESULT: Time of Discovery (GEOPHYSICAL E LOGGER/CDT): 02/21/2022 at 1:20 PM Time of Communication (GEOPHYSICAL E LOGGER/CDT): 1:23 PM Licensed Practitioner Receiving Report: Dr. Ortega Read-Back Performed: Yes. Signer Name: Kwabena Gordon MD Signed: 02/21/2022 2:23 PM Workstation Name: [id number]
[2022-02-21] MEDS ORDERED: LORazepam 2 MG/ML VIAL IV ONE (16:05)
--- NOTE | 2022-02-21 16:19 | Emergency Department Report ---
ED General Adult HPI - General Chief complaint: Chest Pain Stated complaint: PASSING OUT, SHAKING Time Seen by Provider: 02/21/22 12:33 Source: patient Mode of arrival: Ambulatory Limitations: No Limitations - History of Present Illness Initial comments: Patient is a 56-year-old male with past medical history of hypertension, PTSD, alcohol abuse with last drink over 30 days ago who presents to the emergency department with complaint of chest pain is all well as dizziness. Patient reports that he has had multiple falls over the past 2 weeks. He initially fell 2 weeks ago hitting his head. He last fell twice on today. Patient states that it has been 30 days since his last drink. He states he feels like the whole world is spinning. He has noted for the past 2 weeks that he has had shakes the arms bilaterally. Patient states he is currently on clonidine, Valium, Robaxin he does not currently take any aspirin or blood thinners. - Related Data Previous Rx's Medication Instructions Recorded Last Taken Type Bacillus Coagulans [Probiotic] 1 each PO QAM #30 capsule. 11/19/16 Unknown Rx Ferrous Sulfate [Feosol 325 MG tab] 325 mg PO QDAY #30 tablet 11/19/16 Unknown Rx Furosemide [Lasix] 60 mg PO QDAY 30 Days tablet 11/19/16 Unknown Rx Lurasidone HCl [Latuda] 20 mg PO QHS #30 tablet 11/19/16 Unknown Rx Ondansetron [Zofran Odt] 4 mg PO Q8HR PRN #20 tab.rapdis 11/19/16 Unknown Rx Pantoprazole [Protonix] 40 mg PO QDAY #30 tablet 11/19/16 Unknown Rx Pyridoxine HCl [Vitamin B-6] 100 mg PO DAILY #30 tablet 11/19/16 Unknown Rx Spironolactone [Aldactone] 50 mg PO QDAY #30 tablet 11/19/16 Unknown Rx Thiamine [Vitamin B-1] 100 mg PO QDAY #30 tablet 11/19/16 Unknown Rx hydrOXYzine PAMOATE [Vistaril] 50 mg PO Q6HR PRN #30 capsule 11/19/16 Unknown Rx oxyCODONE /ACETAMINOPHEN [Percocet 1 tab PO Q6HR PRN #20 tablet 11/19/16 Unknown Rx 5/325] Allergies Allergy/AdvReac Type Severity Reaction Status Date / Time Penicillins Allergy Rash Verified 02/21/22 14:47 Sulfa (Sulfonamide Allergy Rash Verified 02/21/22 14:47 Antibiotics) meperidine HCl [From Demerol] AdvReac Unknown Verified 02/21/22 14:47 ED Review of Systems ROS: Stated complaint: PASSING OUT, SHAKING Other details as noted in HPI Constitutional: denies: chills, fever Eyes: denies: eye pain, eye discharge, vision change ENT: denies: ear pain, throat pain Respiratory: denies: cough, shortness of breath, wheezing Cardiovascular: chest pain. denies: palpitations Endocrine: no symptoms reported Gastrointestinal: denies: abdominal pain, nausea, diarrhea Genitourinary: denies: urgency, dysuria Musculoskeletal: denies: back pain, joint swelling, arthralgia Skin: denies: rash, lesions Neurological: headache, abnormal gait, vertigo. denies: weakness, paresthesias Psychiatric: denies: anxiety, depression Hematological/Lymphatic: denies: easy bleeding, easy bruising ED Past Medical Hx - Past Medical History Hx Hypertension: Yes Hx GERD: Yes Hx Liver Disease: Yes Hx Seizures: Yes Hx Asthma: Yes Additional medical history: esophageal varices. c-diff. Alcohol abuse, elevated LFTs - Social History Smoking Status: Current Every Day Smoker Substance Use Type: None - Medications Home Medications: Home Medications Medication Instructions Recorded Confirmed Last Taken Type Bacillus Coagulans [Probiotic] 1 each PO QAM #30 capsule. 11/19/16 Unknown Rx Ferrous Sulfate [Feosol 325 MG tab] 325 mg PO QDAY #30 tablet 11/19/16 Unknown Rx Furosemide [Lasix] 60 mg PO QDAY 30 Days tablet 11/19/16 Unknown Rx Lurasidone HCl [Latuda] 20 mg PO QHS #30 tablet 11/19/16 Unknown Rx Ondansetron [Zofran Odt] 4 mg PO Q8HR PRN #20 tab.rapdis 11/19/16 Unknown Rx Pantoprazole [Protonix] 40 mg PO QDAY #30 tablet 11/19/16 Unknown Rx Pyridoxine HCl [Vitamin B-6] 100 mg PO DAILY #30 tablet 11/19/16 Unknown Rx Spironolactone [Aldactone] 50 mg PO QDAY #30 tablet 11/19/16 Unknown Rx Thiamine [Vitamin B-1] 100 mg PO QDAY #30 tablet 11/19/16 Unknown Rx hydrOXYzine PAMOATE [Vistaril] 50 mg PO Q6HR PRN #30 capsule 11/19/16 Unknown Rx oxyCODONE /ACETAMINOPHEN [Percocet 1 tab PO Q6HR PRN #20 tablet 11/19/16 Unknown Rx 5/325] ED Physical Exam - General Limitations: No Limitations General appearance: alert, in no apparent distress - Head Head exam: Present: atraumatic, normocephalic - Eye Eye exam: Present: normal appearance - ENT ENT exam: Present: mucous membranes moist - Neck Neck exam: Present: normal inspection - Respiratory Respiratory exam: Present: normal lung sounds bilaterally. Absent: respiratory distress - Cardiovascular Cardiovascular Exam: Present: regular rate, normal rhythm. Absent: systolic murmur, diastolic murmur, rubs, gallop - GI/Abdominal GI/Abdominal exam: Present: soft, normal bowel sounds - Rectal Rectal exam: Present: deferred - Extremities Exam Extremities exam: Present: normal inspection - Back Exam Back exam: Present: normal inspection - Neurological Exam Neurological exam: Present: alert, oriented X3, other (Patient has shaking to the arms bilaterally there are no tongue fasciculations.) - Psychiatric Psychiatric exam: Present: normal affect, normal mood - Skin Skin exam: Present: warm, dry, intact, normal color. Absent: rash ED Course Vital Signs 02/21/22 02/21/22 02/21/22 12:30 12:42 14:37 Temperature 98.5 F Pulse Rate 72 850 H 70 Respiratory 14 21 Rate Blood Pressure Blood Pressure 120/86 [Right] O2 Sat by Pulse 99 98 Oximetry 02/21/22 02/21/22 02/21/22 14:40 14:45 14:57 Temperature 98.4 F Pulse Rate 65 62 Respiratory 12 18 Rate Blood Pressure 133/76 Blood Pressure [Right] O2 Sat by Pulse 99 99 Oximetry 02/21/22 02/21/22 02/21/22 15:01 15:15 15:30 Temperature Pulse Rate 73 73 72 Respiratory 13 17 20 Rate Blood Pressure 123/83 123/83 123/83 Blood Pressure [Right] O2 Sat by Pulse 100 99 99 Oximetry 02/21/22 02/21/22 02/21/22 15:46 16:01 16:15 Temperature Pulse Rate 63 60 66 Respiratory 11 L 11 L 18 Rate Blood Pressure 143/79 143/79 143/79 Blood Pressure [Right] O2 Sat by Pulse 99 98 98 Oximetry 02/21/22 02/21/22 02/21/22 16:31 16:45 17:01 Temperature Pulse Rate 66 56 L 60 Respiratory 11 L 9 L 17 Rate Blood Pressure 143/79 143/79 130/78 Blood Pressure [Right] O2 Sat by Pulse 98 96 96 Oximetry 02/21/22 02/21/22 02/21/22 17:15 17:31 17:45 Temperature Pulse Rate 68 67 64 Respiratory 14 18 20 Rate Blood Pressure 135/73 139/80 130/78 Blood Pressure [Right] O2 Sat by Pulse 96 95 96 Oximetry 02/21/22 02/21/22 02/21/22 18:01 18:15 20:00 Temperature Pulse Rate 62 66 Respiratory 11 L 19 Rate Blood Pressure 143/78 134/76 Blood Pressure [Right] O2 Sat by Pulse 96 96 96 Oximetry 02/21/22 21:23 Temperature 98.3 F Pulse Rate 77 Respiratory 17 Rate Blood Pressure Blood Pressure 141/77 [Right] O2 Sat by Pulse 96 Oximetry - Consultations Consultation #1: 02/21/22 16:17 I spoke to on-call neurosurgery, Dr. Roth. He I discussed patient's CAT scan results. He recommended patient be transferred to a facility with neurosurgery on-call given possible worsening of his acute on chronic subdural hematoma. 02/21/22 16:52 Patient accepted for transfer to [place]. I spoke with Trauma surgery non destructive testing engineer. ED Medical Decision Making - Lab Data Result diagrams: 02/21/22 12:50 02/21/22 12:50 - EKG Data -: EKG Interpreted by Me EKG shows normal: sinus rhythm Rate: normal - Radiology Data Radiology results: report reviewed, image reviewed - Medical Decision Making Briefly patient is a 56-year-old male presents to the emergency department with complaint of chest pain, falls, vertigo, shaking. Differential for the patient includes ACS,. Patient was seen in triage and a CT scan of his brain was ordered. This CAT scan is notable for a acute on chronic subdural hematoma with measurement of 1.3 with 0.5 cm of midline shift. Given this I have spoken with neurosurgery who recommended transfer. I have informed patient. Additionally patient has history of alcohol abuse and there is concern for alcohol withdrawal. Patient currently has shaking in his arms, no tongue fasiculations. I will give 1 m ativan, start CIWA. Critical care attestation.: If time is entered above; I have spent that time in minutes in the direct care of this critically ill patient, excluding procedure time. ED Disposition Clinical Impression: SDH (subdural hematoma) Disposition: 02 SHORT TERM HOSPITAL Is pt being admited?: No Does the pt Need Aspirin: No Condition: Critical Referrals: RACHNA KWON [Other] - 3-5 Days
[2022-02-21 21:24] VITALS: BP 141/77
--- NOTE | 2022-02-23 08:51 | Electrocardiograph Report ---
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
== END 2022-02-21 21:23 | disposition short-term general hospital (02) ==
LOC: ED 11:18
DX: S06.5X9A Traumatic subdural hemorrhage with loss of consciousness of unspecified duration, initial encounter (principal); W19.XXXA Unspecified fall, initial encounter; Y93.89 Activity, other specified; Y92.89 Other specified places as the place of occurrence of the external cause; Y99.8 Other external cause status; I10 Essential (primary) hypertension; K21.9 Gastro-esophageal reflux disease without esophagitis; R56.9 Unspecified convulsions; J45.909 Unspecified asthma, uncomplicated; K76.9 Liver disease, unspecified; Z88.6 Allergy status to analgesic agent; Z88.1 Allergy status to other antibiotic agents; Z88.0 Allergy status to penicillin; F17.200 Nicotine dependence, unspecified, uncomplicated; Z79.899 Other long term (current) drug therapy
CPT/HCPCS: 36415; 70450; 71046; 80053; 84484; 85027; 85610; 85730; 93005; 96374; 99285; J2060; 80320; G0480